=== PATIENT | female | born 1985 | race Asian ===

== ENCOUNTER → 2020-04-15 12:50 | Outpatient (CLI) | payer MEDICAID, SELFPAY ==
--- NOTE | 2020-04-15 12:58 | CT_ITS ---
STUDY: CT ABDOMEN AND PELVIS WITHOUT CONTRAST REASON FOR EXAM: Female, 35 years old. KIDNEY STONE, LEFT FLANK PAIN OFF/ON X 1 MONTH, HX KS, HYSTERECTOMY RADIATION DOSAGE (If Supplied By Facility): CTDIvol = ( 6.15 ) mGy, DLP = ( 285.54 ) mGycm TECHNIQUE: Transaxial images were obtained from the dome of the diaphragm to the symphysis pubis without oral contrast, and without intravenous contrast. Sagittal and coronal images were reconstructed. Individualized dose optimization techniques were used for this CT. COMPARISON: None. FINDINGS: Bilateral breast prosthesis. The visualized lung bases are unremarkable. The visualized portions of the heart are within normal limits. Normal liver. Normal gallbladder and extrahepatic biliary system. Normal spleen. Normal pancreas. Normal bilateral adrenal glands. Multiple calculi are seen in the right kidney more prominent in the upper pole and midpole regions. 1 cm hypodensity is seen in the posterior medial aspect of the right kidney suggestive of a small angiomyolipoma. Normal left kidney. There is a small hiatal hernia. Normal small intestine. Normal colon. The appendix is visualized and appears normal. Normal abdominal aorta. Normal inferior vena cava. Normal retroperitoneum. Normal urinary bladder. There is absence of the uterus consistent with a prior hysterectomy. Normal abdominal wall. Normal osseous structures. CT/Abdomen/Pelvis without Cont IMPRESSION: Multiple small renal calculi are seen in the upper pole and midpole regions of the right kidney. No obstructive uropathy is seen. Electronically Signed: Steve Dumont, at 14:13 EST , Service support ,
== END ==
PROVIDERS: Referring Provider Urology; Visit Provider Urology
DX: N20.0 Calculus of kidney (principal); R10.9 Unspecified abdominal pain
CPT/HCPCS: 74176

== ENCOUNTER → 2021-04-06 10:21 | Outpatient (CLI) | payer MEDICAID, SELFPAY ==
--- NOTE | 2021-04-06 10:25 | RAD_ITS ---
STUDY: X-RAY CHEST REASON FOR EXAM: Female, 35 years old. SHORTNESS OF BREATH TECHNIQUE: Single AP portable view of the chest. COMPARISON: None. FINDINGS: The lungs are clear and expanded. There is no demonstrated pleural abnormality. Normal size heart. Normal mediastinum and robyn. Normal visualized pulmonary arteries. Normal visualized aortic arch and descending thoracic aorta. Normal visualized thoracic spine. Normal visualized ribs, clavicles, and shoulders. There is no demonstrated abnormality of the visualized soft tissue structures of the upper abdomen. RAD/Chest PA and Lateral IMPRESSION: Normal x-ray examination of the chest. Electronically Signed: Steve Dumont MD at 15:35 EDT , Service support ,
--- NOTE | 2021-04-06 10:25 | RAD_ITS ---
STUDY: X-RAY - ABDOMEN/PELVIS REASON FOR EXAM: Female, 35 years old. KUB- STONES TECHNIQUE: Single AP view of the abdomen / pelvis. COMPARISON: CT 04/15/2020 FINDINGS: Group of calcifications projecting in the right upper abdomen correlate to right renal calculi evident on prior CT. There is an unremarkable bowel gas pattern. There is no demonstrated free abdominal air. The visualized liver, spleen and kidneys are grossly normal in size and morphology. Normal soft tissue structures. Normal visualized osseous structures. RAD/Abdomen Single View IMPRESSION: Right nephrolithiasis. Electronically Signed: Aldo Aguilar MD ([place]) at 7:49 EDT , Service support ,
== END ==
PROVIDERS: Referring Provider Urology; Visit Provider Urology
DX: N20.0 Calculus of kidney (principal); R06.02 Shortness of breath
CPT/HCPCS: 71046; 74018

== ENCOUNTER → 2024-05-14 | Outpatient (CLI) | payer MEDICAID, SELFPAY ==
--- NOTE | 2024-05-14 12:46 | RAD_ITS ---
EXAM: XR ABDOMEN, 1 VIEW CLINICAL INDICATION: KUB- STONE TECHNIQUE: Frontal supine view of the abdomen/pelvis. COMPARISON: No relevant prior studies available. FINDINGS: LOWER THORAX: No acute pathology. GASTROINTESTINAL TRACT: There is moderate stool in the colon. Non-obstructive. No bowel or stomach distention. ORGANS: There are multiple calcifications overlying the upper pole the right kidney which are stable. No organomegaly. BONES/JOINTS: No acute pathology. SOFT TISSUES: No acute pathology. RAD/Abdomen Single View IMPRESSION: 1. Stable right renal calculi. 2. Moderate stool the colon which may represent constipation. Electronically Signed: Gal Mendez MD at 0:15 EST ,
== END | disposition home or self-care (01) ==
PROVIDERS: Referring Provider Urology; Visit Provider Urology
DX: N20.0 Calculus of kidney (principal)
CPT/HCPCS: 74018

== ENCOUNTER 2024-06-27 08:45 | Day surgery (SDC) | payer MEDICAID, SELFPAY ==
[2024-06-19 15:08] LABS: Hematocrit 39.1 % (37-47); Hemoglobin 13.6 g/dL (12.0-15.0); Mean Corp Hgb Conc 34.8 g/dL (32-36); Mean Corpuscular Hgb 29.9 pg (27.0-32.0); Mean Corpuscular Volume 85.9 fL (81-99); Mean Platelet Vol. 9.1 fl (6.2-12.0); Platelet Count 277 K/mm3 (150-450); RBC Distribution Width CV 12.3 % (11.6-14.6); RBC Distribution Width SD 38.6 fl (35.1-43.9); Red Blood Count 4.55 M/mm3 (4.2-5.4); White Blood Count 6.7 K/mm3 (4.4-11.0)
[2024-06-19 15:41] LABS: Anion Gap 6 (5-15); BUN 8 mg/dL (7-18); BUN/Creat Ratio 12.8 RATIO (10-20); Calcium,Total 9.5 mg/dL (8.5-10.1); Chloride 104 mmol/L (98-107); Creatinine, Serum 0.62 mg/dL (0.55-1.02); EST Glomerular Filtration Rate 114 mL/min (>60); Est Glom Filt Rate - Afr Amer 137 mL/min (>60); Glucose 146 mg/dL (74-106); Potassium 4.1 mmol/L (3.5-5.1); Sodium Level 137 mmol/L (136-145)
[2024-06-27] VITALS (10 sets, daily range): BP systolic 108–140; BP diastolic 67–91; PULSE 69–88; RESP 16–18; TEMP 36.1–36.3; O2SAT 100; BMI 23.3
[2024-06-27] MEDS: 0.9% Normal Saline (1000mL) 1,000 ML 15 ML IV (09:30)
[2024-06-27 09:38] LABS: Bedside Glucose 156 mg/dL (74-106)
--- NOTE | 2024-06-27 10:09 | PCM.PRE.AN2 ---
ASA Classification* ASA Classification ASA Classification: 2 Assessment & Plan Anesthesia* Anesthesia Assessment Anesthesia Assessment: Discussed sedation and/or anesthesia options, risks, benefits, and alternatives with patient/parents/legal guardian/POA. Questions invited. The patient/parents/legal guardian/POA seems to understand and agrees to proceed with anesthesia plan. Reviewed the physical assessment, medical history, allergy history and patient home medications list prior to surgery/procedure/anesthetic and documented any changes. Performed airway and anesthesia risk assessments. Anesthesia Type Anesthesia Type: General Anesthesia Focused Assessment* Temperature: 97.2 F Pulse Rate: 82 Blood Pressure: 131/76 Respiratory Rate: 18 Pulse Ox: 100 Airway Assessment Mouth opens: >3 cm Mallampati Score: II Focused Labs Anesthesia Preop lab: CBC WBC 6.7 K/mm3 (4.4-11.0) 06/19/24 11:10 RBC 4.55 M/mm3 (4.2-5.4) 06/19/24 11:10 Hgb 13.6 g/dL (12.0-15.0) 06/19/24 11:10 Hct 39.1 % (37-47) 06/19/24 11:10 Plt Count 277 K/mm3 (150-450) 06/19/24 11:10 CHEMISTRY Potassium 4.1 mmol/L (3.5-5.1) 06/19/24 11:10 Sodium 137 mmol/L (136-145) 06/19/24 11:10 BUN 8 mg/dL (7-18) 06/19/24 11:10 Creatinine 0.62 mg/dL (0.55-1.02) 06/19/24 11:10 Glucose 146 mg/dL (74-106) H 06/19/24 11:10 POC Glucose 156 mg/dL (74-106) H 06/27/24 09:14 COAG Pre-Assessment Diagnosis/Proposed Procedure Planned Operative Procedure(s): (R) Cysto, right ureteral stent, Right Renal ESWL Anesthesia History Anesthesia History - geological manager: Anesthesia History - geological manager Hx Hospitalization No 06/13/24 14:18 Any Problems With Anesthesia No 06/13/24 14:18 Cholinesterase deficiency No 06/13/24 14:18 You/Your Family Experience No 06/13/24 14:18 fever (hyperthermia) with Relationship Recent Exposure to Contagious No 06/27/24 09:17 Disease Does patient have nerve No 06/13/24 14:18 stimulator Patient instructed to have device shut off --Does patient have Pacemaker No 06/27/24 09:17 or ICD? When Was Last Pacemaker Check QUESTION #4 FULL TEXT: You/Your Family Experience fever (hyperthermia) with Anesthesia Last Oral Intake Last Oral intake: Last Oral Intake NPO since 23:00 06/27/24 09:17 Meds taken in AM with sips of water? Meds patient instructed to take am of surgery PONV PONV - geological manager: PONV - geological manager Female Yes 06/13/24 14:18 HX of Motion Sickness No 06/13/24 14:18 HX of N/V After Surgery No 06/13/24 14:18 Non-Smoker Yes 06/13/24 14:18 Duration of Surgery greater No 06/13/24 14:18 than 60 minutes Number of Risk Factors 2 06/13/24 14:18 PONV Score Moderate Risk 06/13/24 14:18 Height & Weight Height & Weight: Anesthesia: Height & Weight Height 5 ft 3 in 06/27/24 09:17 Weight: 59.6 kg 06/27/24 09:17 Body Mass Index (BMI) 23.3 06/27/24 09:17 Respiratory Assessment Respiratory Assessment - geological manager: Respiratory Tract Infection Hx - geological manager Hx Respiratory Tract Infection No 06/13/24 14:18 STOP Sleep Apnea STOP Sleep Apnea - geological manager: STOP Sleep Apnea - geological manager Hx Hypertension No 06/13/24 14:18 Hx Sleep Apnea No 06/13/24 14:18 CPAP BIPAP Do you snore loudly (louder No 06/13/24 14:18 than talking or can be heard Do you often feel tired/ No 06/13/24 14:18 fatigued/ sleepy during daytime? Has anyone observed you stop No 06/13/24 14:18 breathing during sleep? STOP Results Negative 06/13/24 14:18 QUESTION #5 FULL TEXT : Do you snore loudly (louder than talking or can be heard through closed doors)? Tobacco Use History Tobacco Use History - geological manager: Tobacco Use History - geological manager Tobacco Use Smoking Status Never smoker 06/13/24 14:18 Hx Tobacco Use No 06/13/24 14:18 Years Smoking Packs Smoked per Day Smoking Cessation Date was within the last 15 years Hx Smoking Cessation Date Hx Smoking Cessation Counseling Hematologic Medial History Hematologic Hx - geological manager: Hematologic Medical Hx - survey research teacher Hx of Blood Transfusion No 06/13/24 14:18 Hx of Transfusion in last 3 No 06/13/24 14:18 Months Date of Last Transfusion (if within last 3 months) Ever experience any problems No 06/13/24 14:18 with transfusion(s)? Specify any problems Hx of Preganancy in last 3 N/A 06/13/24 14:18 Months Nurse Filling Out Transfusion NBUCHER 06/13/24 14:18 & Questions: Date: 06/13/24 06/13/24 14:18 Time: 14:22 06/13/24 14:18 Patient unable to answer at this time (ie. confused, unrespo /Reproduction History /Reproductive History - geological manager: /Reproductive Hx- geological manager Hx Now No 06/13/24 14:18 Gestational Age (in weeks): EDC: Hx Hx Para Hx Section SAB No 06/13/24 14:18 Active Medications Active Medications: Current Medications Generic Name Dose Route Start Last Admin Trade Name Freq PRN Reason Stop Dose Admin Cefazolin Sodium 2 gm/ N/A 20 mls @ 400 mls/hr 06/27/24 10:35 IV 06/27/24 10:37 PREOP ONE Sodium Chloride 1,000 mls @ 15 mls/hr 06/27/24 09:00 06/27/24 09:30 IV 07/02/24 22:19 15 mls/hr .Q48H KYARA Administration Protocol [facility] Medical History Thyroid disease High cholesterol GERD (gastroesophageal reflux disease) Non-smoker History of kidney stones Home Medications ?Medication ?Instructions ?Recorded ?Last Taken ?Type metformin 500 mg tablet,extended 1,000 mg PO BID 06/13/24 Unknown History release 24 hr multivitamin (Daily Multi-Vitamin 1 tab PO DAILY 06/13/24 Unknown History tablet) rosuvastatin 10 mg tablet 10 mg PO DAILY 06/13/24 Unknown History Allergy/AdvReac Type Severity Reaction Status Date / Time No Known Allergies Allergy Verified 06/27/24 09:16 Surgical History History of colonoscopy History of lithotripsy (~2019) History of hysterectomy History of breast augmentation History of Social History Smoking Status: Never smoker Review of Systems (Anesthesia) ROS Narrative System reviewed and no additional complaints, except as documented.
--- NOTE | 2024-06-27 10:19 | PCM.OPRPT ---
Problems Associated Problem List Diagnoses (1) History of kidney stones: Operative Report (Standard) Operative Information Date of Procedure: 06/27/24 Pre-Operative Diagnosis: Right renal stones Post-Operative Diagnosis: Same Surgery/Procedure Performed: Cystoscopy, right ureteral stent insertion, right renal extracorporal shockwave lithotripsy security supervisor: No Type of Anesthesia: General RN Documented Start/Stop Times: Operation Date: 06/27/24 10:35 Case Time Into Pre-Op 06/27/24 08:59 Out of Pre-Op 06/27/24 11:16 Anesthesia Start 06/27/24 11:19 Into Room 06/27/24 11:19 Procedure Start 06/27/24 11:33 Procedure End 06/27/24 12:16 Procedure Start Time: 11:33 Procedure Stop Time: 12:16 Select all DRAINS/GRAFTS/IMPLANTS that apply: Drains Drain details: 6 Ugandan by 24 cm JJ stent Estimated Blood Loss: <5cc Specimen collected: No Description of surgery: The patient is a 39-year-old female with several right renal stones. She presents for surgical intervention. Informed consent was obtained. She was taken to the operating room and placed on the lithotripsy table. Anesthesia monitored the head, neck, airway, IV access and vital signs throughout the case. Once anesthesia was appropriately administered, she was placed into dorsolithotomy position was prepped and draped in usual sterile fashion. The cystoscope was inserted through the urethra under direct visualization into the urinary bladder. The bladder mucosa was visualized in its entirety finding no evidence of mass, erythema, ulceration or foreign body. The right ureteral orifice was intubated with a 0.035 Glidewire which advanced into the renal pelvis is seen on fluoroscopy. A 6 Ugandan 24 cm JJ stent was placed over the wire with good positioning in the renal pelvis as well as the urinary bladder. Her bladder was emptied and the cystoscope was then removed. She was then repositioned on the lithotripsy table and taken out of dorsolithotomy and placed into supine position. The stones were easily visualized. 3000 shocks were applied and the stones appeared to be fragmented at the conclusion of the case. She was awakened and taken to the recovery room in good condition. There were no complications during this procedure. Surgical Findings: Right renal stones, 3000 shocks of applied Complications Complications: No Admit VTE Documentation VTE Present on Admission: Yes VTE Mechan Device Prophylaxis: SCD's VTE Pharm Prophylaxis ordered?: No Reason prophylaxis not ordered: Treatment Not Indicated
--- NOTE | 2024-06-27 10:22 | HP.PCM_ITS ---
[facility] - General General Date of Service: 06/27/24 Chief Complaint: Right renal stones HPI Narrative RAMA FISH, is a 39 F who presents for surgical intervention for multiple right renal stones. Informed consent has been obtained. [facility] Medical History (Updated 06/27/24 @ 10:[address] Evi Palomino MD) Thyroid disease High cholesterol GERD (gastroesophageal reflux disease) Non-smoker History of kidney stones Home Medications ?Medication ?Instructions ?Recorded ?Last Taken ?Type metformin 500 mg tablet,extended 1,000 mg PO BID 06/13/24 Unknown History release 24 hr multivitamin (Daily Multi-Vitamin 1 tab PO DAILY 06/13/24 Unknown History tablet) rosuvastatin 10 mg tablet 10 mg PO DAILY 06/13/24 Unknown History Allergy/AdvReac Type Severity Reaction Status Date / Time No Known Allergies Allergy Verified 06/27/24 09:16 Surgical History History of colonoscopy History of lithotripsy (~2018) History of hysterectomy History of breast augmentation History of Social History Smoking Status: Never smoker ROS Constitutional Constitutional: Reports systems reviewed and no addt'l complaints, except as documented; Denies chills, fever(s) or weakness Eyes Eyes: Reports systems reviewed and no addt'l complaints, except as documented ENT HEENT: Reports systems reviewed and no addt'l complaints, except as documented Cardiovascular Cardiovascular: Denies abdominal pain, chest pain, claudication, diaphoresis, dizziness or dyspnea Respiratory/Chest Respiratory/Chest: Denies chest congestion, cough, dyspnea or inability to speak Gastrointestinal Gastrointestinal: Denies anorexia, nausea or vomiting Genitourinary Genitourinary: Reports systems reviewed and no addt'l complaints, except as documented and flank pain; Denies hematuria, nocturia, urinary frequency or urinary incontinence Musculoskeletal Musculoskeletal: Reports systems reviewed and no addt'l complaints, except as documented Integumentary Integumentary: Reports systems reviewed and no addt'l complaints, except as documented; Denies alopecia, pruritus or rash Neurologic Neurologic: Reports systems reviewed and no addt'l complaints, except as documented Psychiatric Psychiatric: Reports systems reviewed and no addt'l complaints, except as documented Endocrine Endocrinology: Reports systems reviewed and no addt'l complaints, except as documented Hematologic/Lymphatic Hematologic/Lymphatic: Reports systems reviewed and no addt'l complaints, except as documented Allergic/Immunologic Allergic/Immunologic: Reports systems reviewed and no addt'l complaints, except as documented Vital Signs Vital Signs Vital Signs: 06/27/24 09:17 06/27/24 09:17 06/27/24 10:09 Temperature 97.2 F L 97.2 F L Temperature Source Temporal Pulse Rate 82 82 Respiratory Rate 18 18 Respiratory Pattern Normal Blood Pressure 131/76 H 131/76 H Blood Pressure Mean 94 Blood Pressure Source Monitor Blood Pressure Position Semi-Fowlers Blood Pressure Location Left Arm Pulse Ox 100 100 Oxygen Delivery Method Room Air Weight Weight: 59.6 kg Body Mass Index (BMI) 23.3 Physical Exam Const alert, oriented x3 and no apparent distress General Appearance: cooperative, comfortable and well kempt HEENT normocephalic, head/scalp atraumatic, hearing grossly normal bilaterally, external ears normal, external nose normal and moist oral mucous membranes Eyes General Eye: normal appearance of both eyes Neck supple General: normal visual inspection and trachea midline Lymph Lymphatic: no lymphedema noted Chest inspection of chest normal Chest: symmetrical chest wall rise Resp normal respiratory effort, normal air movement, no retractions and no use of accessory muscles Effort and Inspection: able to speak in complete sentences and symmetric chest movement Cardio regular rate and regular rhythm GI soft to palpation, non-tender and non-distended no CVA tenderness Back/Spine no CVA tenderness Extremity General Extremity: normal exam except as noted Skin no rashes or lesions noted, no jaundice, no petechiae and no mottling Neuro oriented x3 and CN's II-XII intact bilaterally Psych mental status grossly normal and thought process normal Results Lab / Micro Data 06/19/24 11:10 06/19/24 11:10 Labs: Laboratory Results - last 24 hr 06/27/24 09:14: POC Glucose 156 H Assessment & Plan Assessment/Plan (1) History of kidney stones: PLAN: Plan Cystoscopy with right ureteral stent insertion, right renal extracorporal shockwave lithotripsy
--- NOTE | 2024-06-27 10:26 | DCINST_ITS ---
Discharge Instructions Diet Discharge Diet: No restrictions Activity Discharge Activity: Return to Normal Activity Dressing / Incision Call your doctor if you observe: Fever of 101 or Higher, Inability to urinate and Inability to have a bowel movement Follow Up Care Please Follow Up With: Evi Palomino MD When: The office will call to make follow-up arrangements for 2 to 3 weeks with a KUB and possible stent removal. Test Results: Test results from this visit will be discussed in further detail at your follow-up appointment, if applicable. Discharge Plan Admission Attending Provider: Evi Palomino Primary Care Provider: GARY CUNNINGHAM Instructions Print Language: Bahamian Discharge Orders/Prescriptions Prescriptions: New oxycodone-acetaminophen 5-325 mg tablet 1 tab PO Q8H PRN (Reason: pain) 3 Days Qty: 10 0RF cephalexin 500 mg capsule 500 mg PO Q12 3 Days Qty: 6 0RF phenazopyridine [Pyridium] 200 mg tablet 200 mg PO TID PRN PRN (Reason: Bladder Spasms) 7 Days Qty: 30 3RF ondansetron 8 mg tablet,disintegrating 8 mg PO Q8H PRN (Reason: nausea and vomiting) Qty: 10 0RF Continued metformin 500 mg tablet extended release 24 hr 1,000 mg PO BID rosuvastatin 10 mg tablet 10 mg PO DAILY multivitamin [Daily Multi-Vitamin] Tablet 1 tab PO DAILY Referrals / Follow Up: GARY CUNNINGHAM [Other] Disposition Disposition (needs filled in before D/C Order can be placed): Home, Self Care
[2024-06-27] MEDS: Cefazolin 2 GM in Syringe IV (11:25)
--- NOTE | 2024-06-27 12:29 | PCM.POST.ANE ---
Anesthesia: Postop Eval I Current Vital Signs Temperature: 97 F Pulse Rate: 85 Blood Pressure: 116/67 Respiratory Rate: 18 Pulse Ox: 100 Oxygen Delivery Method: Room Air Assessment Airway patent: Yes Spontaneous unlabored respirations: Yes Mental status: Asleep nausea: No Vomiting: No Anesthesia Complication: No Fluid Hydration Crystalloid volume administer (ml): 1,200 Total IV fluid infused: 1,200 Progress Note Anesthesia document: Postop Eval 1 completed: No
--- NOTE | 2024-06-27 13:00 | POSTOPAN2_ITS ---
Anesthesia Postop Eval I Sum Postop Eval Completion status Anesthesia document: Postop Eval 1 completed: No Anesthesia Postop Eval I Summary Anesthesia Postop Eval I Summary: Anesthesia Postop Eval I: Assessment Summary Airway patent Yes 06/27/24 12:30 BUFFING MACHINE OPERATOR SEMIAUTOMATIC.[email or web address] Spontaneous unlabored Yes 06/27/24 12:30 BUFFING MACHINE OPERATOR SEMIAUTOMATIC.[email or web address] respirations Mental status Asleep 06/27/24 12:30 BUFFING MACHINE OPERATOR SEMIAUTOMATIC.[email or web address] nausea No 06/27/24 12:30 BUFFING MACHINE OPERATOR SEMIAUTOMATIC.[email or web address] Vomiting No 06/27/24 12:30 BUFFING MACHINE OPERATOR SEMIAUTOMATIC.[email or web address] Anesthesia Postop Eval I: Fluid Summary Crystalloid volume administer 1,200 06/27/24 12:30 BUFFING MACHINE OPERATOR SEMIAUTOMATIC.JSWI (ml) Colloids volume administered ( ml) Blood Product volume administered (ml) Total IV fluid infused 1,200 06/27/24 12:30 BUFFING MACHINE OPERATOR SEMIAUTOMATIC.[email or web address] Anesthesia Postop Eval I: Summary Notes Anesthesia Complication No 06/27/24 12:30 BUFFING MACHINE OPERATOR SEMIAUTOMATIC.[email or web address] Anesthesia Complication Comment: Post-operative progress note Anesthesia: Postop Eval II Evaluation Mental status: Awake Pain Level: 0 nausea: No Vomiting: No
--- NOTE | 2024-06-27 13:00 | PCM.POSTANE2 ---
Anesthesia Postop Eval I Sum Postop Eval Completion status Anesthesia document: Postop Eval 1 completed: No Anesthesia Postop Eval I Summary Anesthesia Postop Eval I Summary: Anesthesia Postop Eval I: Assessment Summary Airway patent Yes 06/27/24 12:30 [email or web address] Spontaneous unlabored Yes 06/27/24 12:30 [email or web address] respirations Mental status Asleep 06/27/24 12:30 [email or web address] nausea No 06/27/24 12:30 [email or web address].[email or web address] Vomiting No 06/27/24 12:30 [email or web address].[email or web address] Anesthesia Postop Eval I: Fluid Summary Crystalloid volume administer 1,200 06/27/24 12:30 [email or web address] (ml) Colloids volume administered ( ml) Blood Product volume administered (ml) Total IV fluid infused 1,200 06/27/24 12:30 [email or web address].[email or web address] Anesthesia Postop Eval I: Summary Notes Anesthesia Complication No 06/27/24 12:30 [email or web address].[email or web address] Anesthesia Complication Comment: Post-operative progress note Anesthesia: Postop Eval II Evaluation Mental status: Awake Pain Level: 0 nausea: No Vomiting: No
== END 2024-06-27 14:30 | disposition home or self-care (01) ==
LOC: SDC 08:47 → AC 08:47
PROVIDERS: Referring Provider Urology; Visit Provider Urology
PROC: (CPT 50590; principal; 2024-06-27 10:25)
DX: N20.0 Calculus of kidney (principal); E78.00 Pure hypercholesterolemia, unspecified; Z87.442 Personal history of urinary calculi; K21.9 Gastro-esophageal reflux disease without esophagitis
CPT/HCPCS: 52356; 00873; 36415; 80048; 82962; 85027; C2617; J2405

== ENCOUNTER → 2024-07-17 | Outpatient (CLI) | payer MEDICAID, SELFPAY ==
--- NOTE | 2024-07-17 10:28 | RAD_ITS ---
EXAM: XR Abdomen, 1 View CLINICAL INDICATION: TECHNIQUE: Frontal supine view of the abdomen/pelvis. COMPARISON: No relevant prior studies available. FINDINGS: GASTROINTESTINAL TRACT: Unremarkable. No dilation. BONES/JOINTS: Unremarkable. No acute fracture. RAD/Abdomen Single View IMPRESSION: Nonobstructive bowel gas pattern. Reading [facility]
== END | disposition home or self-care (01) ==
LOC: MTRAD 10:27
PROVIDERS: Referring Provider Urology; Visit Provider Urology
DX: N20.0 Calculus of kidney (principal)
CPT/HCPCS: 74018

== ENCOUNTER 2024-07-25 07:19 | Day surgery (SDC) | payer MEDICAID, SELFPAY ==
[2024-07-25] VITALS (10 sets, daily range): BP systolic 107–126; BP diastolic 66–86; PULSE 81–99; RESP 16; TEMP 36.3–36.5; O2SAT 98–100; BMI 22.1
[2024-07-25] MEDS: 0.9% Normal Saline (1000mL) 1,000 ML 15 ML IV (07:50)
--- NOTE | 2024-07-25 08:06 | PRE.ANES_ITS ---
ASA Classification* ASA Classification ASA Classification: 2 Assessment & Plan Anesthesia* Anesthesia Assessment Anesthesia Assessment: Discussed sedation and/or anesthesia options, risks, benefits, and alternatives with patient/parents/legal guardian/POA. Questions invited. The patient/parents/legal guardian/POA seems to understand and agrees to proceed with anesthesia plan. Reviewed the physical assessment, medical history, allergy history and patient home medications list prior to surgery/procedure/anesthetic and documented any changes. Performed airway and anesthesia risk assessments. Anesthesia Type Anesthesia Type: General History Source History Obtained from:: Patient and Chart Anesthesia Focused Assessment* Temperature: 97.7 F Pulse Rate: 87 Blood Pressure: 126/86 Respiratory Rate: 16 Pulse Ox: 100 Oxygen Delivery Method: Room Air Airway Assessment Mouth opens: >3 cm Mallampati Score: II Teeth Condition: Intact Neck Range of motion (ROM): Full ROM Focused Labs Anesthesia Preop lab: CBC WBC 6.7 K/mm3 (4.4-11.0) 06/19/24 11:10 06/19/24 RBC 4.55 M/mm3 (4.2-5.4) 06/19/24 11:10 06/19/24 Hgb 13.6 g/dL (12.0-15.0) 06/19/24 11:10 06/19/24 Hct 39.1 % (37-47) 06/19/24 11:10 06/19/24 Plt Count 277 K/mm3 (150-450) 06/19/24 11:10 06/19/24 CHEMISTRY Potassium 4.1 mmol/L (3.5-5.1) 06/19/24 11:10 06/19/24 Sodium 137 mmol/L (136-145) 06/19/24 11:10 06/19/24 BUN 8 mg/dL (7-18) 06/19/24 11:10 06/19/24 Creatinine 0.62 mg/dL (0.55-1.02) 06/19/24 11:10 06/19/24 Glucose 146 mg/dL (74-106) H 06/19/24 11:10 06/19/24 POC Glucose 156 mg/dL (74-106) H 06/27/24 09:14 06/27/24 COAG Pre-Assessment Diagnosis/Proposed Procedure Planned Operative Procedure(s): (R) Cysto,Ureteroscopy,Dil,Basket Ext,Stent,Laser Anesthesia History 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 When Was Last Pacemaker Check QUESTION #4 FULL TEXT: You/Your Family Experience fever (hyperthermia) with Anesthesia Last Oral Intake Last Oral intake: Last Oral Intake NPO since 00:00 07/25/24 07:39 Meds taken in AM with sips of water? Meds patient instructed to take am of surgery PONV PONV - clay dry press helper: PONV - clay dry press helper Female Yes 07/24/24 11:11 HX of Motion Sickness No 07/24/24 11:11 HX of N/V After Surgery No 07/24/24 11:11 Non-Smoker Yes 07/24/24 11:11 Duration of Surgery greater No 07/24/24 11:11 than 60 minutes Number of Risk Factors 2 07/24/24 11:11 PONV Score Moderate Risk 07/24/24 11:11 Height & Weight Height & Weight: Anesthesia: Height & Weight Height 5 ft 3 in 07/25/24 07:39 Weight: 56.699 kg 07/25/24 07:39 Body Mass Index (BMI) 22.1 07/25/24 07:39 Respiratory Assessment Respiratory Assessment - clay dry press helper: Respiratory Tract Infection Hx - clay dry press helper Hx Respiratory Tract Infection No 07/24/24 11:11 Any additional information?: Yes Hx Respiratory Tract Infection: Yes (Patient has a mild persistent cough. Nonproductive.) STOP Sleep Apnea STOP Sleep Apnea - clay dry press helper: STOP Sleep Apnea - clay dry press helper Hx Hypertension No 07/24/24 11:11 Hx Sleep Apnea No 07/24/24 11:11 CPAP BIPAP Do you snore loudly (louder No 07/24/24 11:11 than talking or can be heard Do you often feel tired/ No 07/24/24 11:11 fatigued/ sleepy during daytime? Has anyone observed you stop No 07/24/24 11:11 breathing during sleep? STOP Results Negative 07/24/24 11:11 QUESTION #5 FULL TEXT : Do you snore loudly (louder than talking or can be heard through closed doors)? Tobacco Use History Tobacco Use History - clay dry press helper: Tobacco Use History - clay dry press helper Tobacco Use Smoking Status Never smoker 07/24/24 11:11 Hx Tobacco Use No 07/24/24 11:11 Years Smoking Packs Smoked per Day Smoking Cessation Date was within the last 15 years Hx Smoking Cessation Date Hx Smoking Cessation Counseling Hematologic Medial History Hematologic Hx - clay dry press helper: Hematologic Medical Hx - track watchman Hx of Blood Transfusion No 07/24/24 11:11 Hx of Transfusion in last 3 No 07/24/24 11:11 Months Date of Last Transfusion (if within last 3 months) Ever experience any problems No 07/24/24 11:11 with transfusion(s)? Specify any problems Hx of Preganancy in last 3 No 07/24/24 11:11 Months Nurse Filling Out Transfusion VCHRISTIN 07/24/24 11:11 & Questions: Date: 07/24/24 07/24/24 11:11 Time: 11:12 07/24/24 11:11 Patient unable to answer at this time (ie. confused, unrespo /Reproduction History /Reproductive History - clay dry press helper: /Reproductive Hx- clay dry press helper Hx Now No 07/24/24 11:11 Gestational Age (in weeks): EDC: Hx Hx Para Hx Section SAB No 07/24/24 11:11 Active Medications Active Medications: Current Medications Generic Name Dose Route Start Last Admin Trade Name Freq PRN Reason Stop Dose Admin Cefazolin Sodium 2 gm/ N/A 20 mls @ 400 mls/hr 07/25/24 09:05 IV 07/25/24 09:07 PREOP ONE Sodium Chloride 1,000 mls @ 15 mls/hr 07/25/24 07:30 07/25/24 07:50 IV 07/30/24 20:49 15 mls/hr .Q48H KYARA Administration Protocol PFS Medical History Thyroid disease High cholesterol GERD (gastroesophageal reflux disease) Non-smoker History of kidney stones Home Medications ?Medication ?Instructions ?Recorded ?Last Taken ?Type metformin 500 mg tablet,extended 1,000 mg PO BID 06/1307/24/24 History release 24 hr multivitamin (Daily Multi-Vitamin 1 tab PO DAILY 06/1307/24/24 History tablet) rosuvastatin 10 mg tablet 10 mg PO DAILY 06/13/2407/13 History acetaminophen 325 mg tablet 650 mg PO Q6H 07/24/24 Unk nown History (Tylenol) Allergy/AdvReac Type Severity Reaction Status Date / Time No Known Allergies Allergy Verified 07/25/24 07:38 Surgical History Hx of cystoscopy History of colonoscopy History of lithotripsy (~2019) History of hysterectomy History of breast augmentation History of Social History Smoking Status: Never smoker Review of Systems (Anesthesia) ROS Narrative System reviewed and no additional complaints, except as documented.
--- NOTE | 2024-07-25 09:05 | CALC_PTH ---
PATIENT: RAMA FISH LOC: [facility] [place] U#:[id number] AGE/SX: 39/F ROOM: RE07/25/[address]: Dr. Evi Palomino MD : 1985 BED: DIS: 07/25/2024 SPEC #: [id number] RECD: 07/25/24 10:36 STATUS: CLEMENTINA MILLER #: [id number] SHELLEY: 07/25/24 09:[address]: Evi Palomino DEPT: SURGICAL PATHOLOGY RECD BY: Agustina Mendes Tissues: CALCULI Procedures: Surgery Specimen Level I HEADER OPERATION: Cystoscopy, ureteroscopy, basket extension, stent change PRE-OP DIAGNOSIS: Right renal calculi TISSUE SUBMITTED: Right calculi GROSS DIAGNOSIS Fragments of stone, right renal calculi (gross only). 07/25/2024 COMMENT The specimen is submitted in its entirety for chemical stone analysis. The results from this study will be reported separately. GROSS DESCRIPTION Received without fixative labeled with the patient's name and designated right calculi. The specimen consists of multiple fragments of brown stone measuring 0.5 x 0.5 x 0.2 cm. The entire specimen is submitted for stone analysis. 07/25/2024 CPT: 66941
--- NOTE | 2024-07-25 09:17 | OP.PCM_ITS ---
Problems Associated Problem List Diagnoses (1) History of kidney stones: Operative Report (Standard) Operative Information Date of Procedure: 07/25/24 Pre-Operative Diagnosis: Right renal stones Post-Operative Diagnosis: Same Surgery/Procedure Performed: Cystoscopy, right ureteroscopy, thulium laser lithotripsy, stone basket extraction, right ureteral stent change public administration teacher: Yes Director Case Management: Malena Tian Tasks completed by veterinarian assistant: Other Additional cleaner assistant?: No Type of Anesthesia: General RN Documented Start/Stop Times: Operation Date: 07/25/24 09:05 Case Time Into Pre-Op 07/25/24 07:27 Out of Pre-Op 07/25/24 09:05
--- NOTE | 2024-07-25 09:17 | PCM.OPRPT ---
Problems Associated Problem List Diagnoses (1) History of kidney stones: Operative Report (Standard) Operative Information Date of Procedure: 07/25/24 Pre-Operative Diagnosis: Right renal stones Post-Operative Diagnosis: Same Surgery/Procedure Performed: Cystoscopy, right ureteroscopy, thulium laser lithotripsy, stone basket extraction, right ureteral stent change furniture inspector: Yes Manager Brand: Malena Tian Tasks completed by insurance underwriting assistant: Other Additional educational program assistant?: No Type of Anesthesia: General RN Documented Start/Stop Times: Operation Date: 07/25/24 09:05 Case Time Into Pre-Op 07/25/24 07:27 Out of Pre-Op 07/25/24 09:05 Anesthesia Start 07/25/24 09:10 Into Room 07/25/24 09:10 Procedure Start 07/25/24 09:26 Procedure End 07/25/24 10:05 Procedure Start Time: 09:26 Procedure Stop Time: 10:05 Select all DRAINS/GRAFTS/IMPLANTS that apply: Drains Drain details: 6 Palauan by 24 cm JJ stent Estimated Blood Loss: <5cc Specimen collected: Yes Description of specimen(s) removed: Stone fragments Description of surgery: The patient is a 39-year-old female who is status post right ureteral stent insertion with right renal extracorporal shockwave lithotripsy. On follow-up she was found to have significant remaining stone burden with stone pooling in her renal pelvis. There is approximately 50% improvement in the stone burden following the shockwave lithotripsy. Informed consent was obtained. She was taken the operating room and placed on the operating room table. Anesthesia monitored the head, neck, airway, IV access and vital signs throughout the case. Once anesthesia was appropriately ministered, she was placed into dorsolithotomy position was prepped and draped in usual sterile fashion. The cystoscope was inserted through the urethra under direct visualization into the urinary bladder. The right ureteral stent was observed grasped and pulled to the urethral meatus where it was backloaded with a 0.035 Glidewire. It was then removed. A second 0.035 Glidewire was passed alongside the first. The flexible ureteroscope was placed over one of the safety wires and advanced easily into the right ureter all the way into the renal pelvis. Her renal pelvic anatomy contained multiple divots within the renal tissue with stones collected inside of them. The thulium laser was then utilized to break the several stones that were identified into dust, debris and small fragments. Contrast was injected through the ureteroscope to ensure that all of the calyces were identified and evaluated with any stone fragments being broken into dust. At this time a stone basket was utilized to remove the biggest fragment. The entire length of the ureter was directly visualized with the ureteroscope revealing no evidence of injury, obstruction or other abnormality. The remaining safety wire was then utilized for placement of a 6 Palauan 24 cm JJ stent with good positioning in the right renal pelvis as well as the urinary bladder. The bladder was then emptied and several stone fragments were collected, and then the cystoscope was removed. She was awakened and taken to the recovery room in good condition. There were no complications during the procedure. Surgical Findings: Multiple stone fragments within the right kidney Complications Complications: No Admit VTE Documentation VTE Present on Admission: Yes VTE Mechan Device Prophylaxis: SCD's VTE Pharm Prophylaxis ordered?: No Reason prophylaxis not ordered: Treatment Not Indicated
--- NOTE | 2024-07-25 09:20 | EX.PCM.DISCH ---
Discharge Instructions Diet Discharge Diet: No restrictions Activity Discharge Activity: Return to Normal Activity Dressing / Incision Call your doctor if you observe: Fever of 101 or Higher, Inability to urinate and Inability to have a bowel movement Follow Up Care Please Follow Up With: Evi Palomino MD When: 2 weeks in the office with KUB Test Results: Test results from this visit will be discussed in further detail at your follow-up appointment, if applicable. Discharge Plan Admission Attending Provider: Evi Palomino Primary Care Provider: GARY CUNNINGHAM Instructions Print Language: Georgian Discharge Orders/Prescriptions Prescriptions: New oxycodone-acetaminophen 5-325 mg tablet 1 tab PO Q8H PRN (Reason: pain) 3 Days Qty: 10 0RF cephalexin 500 mg capsule 500 mg PO Q12 3 Days Qty: 6 0RF phenazopyridine 200 mg tablet 200 mg PO TID PRN (Reason: pain) Qty: 30 3RF Continued metformin 500 mg tablet extended release 24 hr 1,000 mg PO BID rosuvastatin 10 mg tablet 10 mg PO DAILY multivitamin [Daily Multi-Vitamin] Tablet 1 tab PO DAILY acetaminophen [Tylenol] 325 mg tablet 650 mg PO Q6H Referrals / Follow Up: GARY CUNNINGHAM [Other] Disposition Disposition (needs filled in before D/C Order can be placed): Home, Self Care
[2024-07-25] MEDS: Cefazolin 2 GM in Syringe IV (09:21)
[2024-07-25 09:45] LABS: Bedside Glucose 139 mg/dL (74-106)
--- NOTE | 2024-07-25 10:29 | PCM.POST.ANE ---
Anesthesia: Postop Eval I Current Vital Signs Temperature: 97.6 F Pulse Rate: 99 Blood Pressure: 118/66 Respiratory Rate: 16 Pulse Ox: 100 Oxygen Delivery Method: Room Air Assessment Airway patent: Yes Spontaneous unlabored respirations: Yes Mental status: Awake and Calm nausea: No Vomiting: No Anesthesia Complication: No Fluid Hydration Crystalloid volume administer (ml): 800 Total IV fluid infused: 800 Progress Note Anesthesia document: Postop Eval 1 completed: Yes
--- NOTE | 2024-07-25 18:38 | POSTOPAN2_ITS ---
Anesthesia Postop Eval I Sum Postop Eval Completion status Anesthesia document: Postop Eval 1 completed: Yes Anesthesia Postop Eval I Summary Anesthesia Postop Eval I Summary: Anesthesia Postop Eval I: Assessment Summary Airway patent Yes 07/25/24 10:31 IT WEB DEVELOPMENT CONSULTANT.MDOT Spontaneous unlabored Yes 07/25/24 10:31 IT WEB DEVELOPMENT CONSULTANT.MDOT respirations Mental status Awake,Calm 07/25/24 10:31 IT WEB DEVELOPMENT CONSULTANT.MDOT nausea No 07/25/24 10:31 IT WEB DEVELOPMENT CONSULTANT.MDOT Vomiting No 07/25/24 10:31 IT WEB DEVELOPMENT CONSULTANT.MDOT Anesthesia Postop Eval I: Fluid Summary Crystalloid volume administer 800 07/25/24 10:31 IT WEB DEVELOPMENT CONSULTANT.MDOT (ml) Colloids volume administered ( ml) Blood Product volume administered (ml) Total IV fluid infused 800 07/25/24 10:31 IT WEB DEVELOPMENT CONSULTANT.MDOT Anesthesia Postop Eval I: Summary Notes Anesthesia Complication No 07/25/24 10:31 IT WEB DEVELOPMENT CONSULTANT.MDOT Anesthesia Complication Comment: Post-operative progress note Anesthesia: Postop Eval II Evaluation Mental status: Awake and Calm Pain Level: 1 nausea: No Vomiting: No Complications Anesthesia Complication: No
--- NOTE | 2024-07-25 18:38 | PCM.POSTANE2 ---
Anesthesia Postop Eval I Sum Postop Eval Completion status Anesthesia document: Postop Eval 1 completed: Yes Anesthesia Postop Eval I Summary Anesthesia Postop Eval I Summary: Anesthesia Postop Eval I: Assessment Summary Airway patent Yes 07/25/24 10:31 DATA SPECIALIST.MDOT Spontaneous unlabored Yes 07/25/24 10:31 DATA SPECIALIST.MDOT respirations Mental status Awake,Calm 07/25/24 10:31 DATA SPECIALIST.MDOT nausea No 07/25/24 10:31 DATA SPECIALIST.MDOT Vomiting No 07/25/24 10:31 DATA SPECIALIST.MDOT Anesthesia Postop Eval I: Fluid Summary Crystalloid volume administer 800 07/25/24 10:31 DATA SPECIALIST.MDOT (ml) Colloids volume administered ( ml) Blood Product volume administered (ml) Total IV fluid infused 800 07/25/24 10:31 DATA SPECIALIST.MDOT Anesthesia Postop Eval I: Summary Notes Anesthesia Complication No 07/25/24 10:31 DATA SPECIALIST.MDOT Anesthesia Complication Comment: Post-operative progress note Anesthesia: Postop Eval II Evaluation Mental status: Awake and Calm Pain Level: 1 nausea: No Vomiting: No Complications Anesthesia Complication: No
[2024-08-03 18:08] LABS: Ca Oxalate, Dihydrate 20 % (.); Ca Oxalate, Monohydrate 80 % (.); Size 3x3 mm (.)
== END 2024-07-25 12:19 | disposition home or self-care (01) ==
LOC: SDC 07:20 → AC 07:21
PROVIDERS: Referring Provider Urology; Visit Provider Urology
PROC: 0TJ98ZZ Inspection of Ureter, Via Natural or Artificial Opening Endoscopic (ICD-10-PCS; CPT 52352; principal; 2024-07-25 08:55)
DX: N20.0 Calculus of kidney (principal); E11.9 Type 2 diabetes mellitus without complications; E78.00 Pure hypercholesterolemia, unspecified; E07.9 Disorder of thyroid, unspecified; K59.09 Other constipation; K21.9 Gastro-esophageal reflux disease without esophagitis; Z79.84 Long term (current) use of oral hypoglycemic drugs; Z79.899 Other long term (current) drug therapy
CPT/HCPCS: 52356; 00918; 76000; 82360; 82962; 88300; C1769; C2617; J2405

== ENCOUNTER → 2024-08-12 | Outpatient (CLI) | payer MEDICAID, SELFPAY ==
--- NOTE | 2024-08-12 09:45 | RAD_ITS ---
PROCEDURE: ABDOMEN SINGLE VIEW REASON FOR EXAM: Kidney stones. TECHNIQUE: Single view abdomen. COMPARISON: 07/17/2024 FINDINGS: No visible bowel dilatation. Redemonstrated right nephroureteral stent. Proximal pigtail configuration is slightly altered as compared with 07/17/2024, although the location is similar. Redemonstrated calculi projecting over the right upper pole. Similar 3 mm calculus along the right pelvis near the aspect of the ureteral stent distal, possible phlebolith versus distal ureteral calculus. Similar presumed left pelvic phleboliths. No visible acute bony abnormality. RAD/Abdomen Single View IMPRESSION: 1. Right nephroureteral stent with slightly altered proximal pigtail configurat ion as compared with 07/17/2024. 2. Grossly similar right renal calculi and 3 mm calculus projecting over the ri ght pelvis, distal ureteral calculus versus vascular phlebolith. CT could further delineate as indicated. Reading Location: [id number]
== END | disposition home or self-care (01) ==
LOC: MTRAD 09:42
PROVIDERS: Referring Provider Urology; Visit Provider Urology
DX: N20.0 Calculus of kidney (principal)
CPT/HCPCS: 74018